=== PATIENT | female | born 1985 | race Caucasian/White ===

== ENCOUNTER 2018-06-14 17:06 | Inpatient (IN) | payer MEDICAID, OTHER ==
[~2018-06-14] VITALS: Ht 162.6 cm; Wt 66.2 kg
[~2018-06-14 17:06] MED LIST: HYDR-3498 PO; ZOFRAN
[2018-06-14] MEDS ORDERED: ACETAMINOPHEN 500 MG TAB PO STA (20:26)
[2018-06-14] MEDS ORDERED: SOD CHLORIDE 0.9% 1,000 ML IV ONE (20:30)
--- NOTE | 2018-06-14 20:35 | ERD ---
ER Documentation Chief Complaint Chief Complaint PELVIC PAIN 8 WEEKS PREG DENIES BLEEDING ROS All systems reviewed and are negative except as per history of present illness. Medications Home Meds Reported Medications [zofran PO] No Conflict Check 12/14/12 Hydrocodone Bit-Acetaminophen* ([place]*) 1 Tab Tab, 2 TAB PO QID 12/14/12 Allergies Allergies: Coded Allergies: No Known Allergy (Unverified , 12/15/12) PMhx/Soc Medical and Surgical Hx: pt denies Medical Hx History of Surgery: Yes (LAP BEBETO) Anesthesia Reaction: No Hx Neurological Disorder: No Hx Respiratory Disorders: No Hx Cardiac Disorders: No Hx Psychiatric Problems: No Hx Miscellaneous Medical Probl: No Hx Alcohol Use: No Hx Substance Use: Yes (MARIJUANA) Hx Tobacco Use: Yes (3 cigarretes sometimes) Smoking Status: Current every day smoker Physical Exam Vitals Vital Signs Date Temp Pulse Resp B/P (MAP) Pulse Ox O2 O2 Flow FiO2 Time Delivery Rate 06/14/18 97.7 98 18 90/51 (64) 100 Room Air 22:39 06/14/18 100.1 131 18 122/72 99 17:10 (89) Physical Exam Const: No acute distress Head: Atraumatic Eyes: Normal Conjunctiva ENT: Normal External Ears, Nose and Mouth. Neck: Full range of motion. No meningismus. Resp: Clear to auscultation bilaterally Cardio: Regular rate and rhythm, no murmurs Abd: Soft, non tender, non distended. Normal bowel sounds. . Skin: No petechiae or rashes Back: No midline or flank tenderness. Ext: No cyanosis, or edema Neur: Awake and alert. Romberg test negative. No neurological deficits. Psych: Normal Mood and Affect Result Diagram: 06/14/18211406/14/182114 Results 24 hrs Laboratory Tests Test 06/14/18 21:15 06/14/18 23:18 White Blood Count 13.9 10^3/ul Red Blood Count 4.24 10^6/ul Hemoglobin 11.8 g/dl Hematocrit 35.5 % Mean Corpuscular Volume 83.7 fl Mean Corpuscular Hemoglobin 27.8 pg Mean Corpuscular Hemoglobin Concent 33.2 g/dl Red Cell Distribution Width 13.1 % Platelet Count 323 10^3/UL Mean Platelet Volume 9.2 fl Immature Granulocytes % 0.700 % Neutrophils % 78.8 % Lymphocytes % 12.0 % Monocytes % 8.3 % Eosinophils % 0.0 % Basophils % 0.2 % Nucleated Red Blood Cells % 0.0 /100WBC Immature Granulocytes # 0.100 10^3/ul Neutrophils # 10.9 10^3/ul Lymphocytes # 1.7 10^3/ul Monocytes # 1.2 10^3/ul Eosinophils # 0.0 10^3/ul Basophils # 0.0 10^3/ul Nucleated Red Blood Cells # 0.0 10^3/ul Urine Color YELLOW Urine Clarity CLEAR Urine pH 6.0 Urine Specific [place] 1.003 Urine Ketones NEGATIVE mg/dL Urine Nitrite NEGATIVE mg/dL Urine Bilirubin NEGATIVE mg/dL Urine Urobilinogen NEGATIVE mg/dL Urine Leukocyte Esterase 2+ [place]/ul Urine Microscopic RBC 1 /HPF Urine Microscopic WBC 83 /HPF Urine Squamous Epithelial Cells FEW /HPF Urine Bacteria FEW /HPF Urine Hemoglobin 1+ mg/dL Urine Glucose NEGATIVE mg/dL Urine Total Protein NEGATIVE mg/dl Sodium Level 136 mmol/L Potassium Level 3.3 mmol/L Chloride Level 100 mmol/L Carbon Dioxide Level 25 mmol/L Anion Gap 11 Blood Urea Nitrogen 6 mg/dl Creatinine 0.52 mg/dl Est Glomerular Filtrat Rate mL/min > 60 mL/min Glucose Level 110 mg/dl Calcium Level 9.1 mg/dl Total Bilirubin 0.5 mg/dl Direct Bilirubin 0.00 mg/dl Indirect Bilirubin 0.5 mg/dl Aspartate Amino Transf (AST/SGOT) 27 IU/L Alanine Aminotransferase (ALT/SGPT) 6 IU/L Alkaline Phosphatase 72 IU/L Total Protein 7.5 g/dl Albumin 3.9 g/dl Globulin 3.60 g/dl Albumin/Globulin Ratio 1.08 Amylase Level 47 U/L Lipase 22 U/L Beta HCG, Quantitative 24846.0 mIU/ml POC Venous Lactate 1.5 mmol/L Current Medications Medications Dose Sig/Kristie Start Time Status Last (Trade) Ordered Route PRN Stop Time Admin Dose Reason Admin 500 mg ONCE STAT 06/14/18 DC 06/14/18 Acetaminophen PO 20:26 06/14/18 21:05 (Tylenol 20:31 Tab) Sodium 1,000 ml @ Q1H ONCE 06/14/18 DC 06/14/18 Chloride 1,000 mls/hr IV 20:30 06/14/18 21:14 21:29 Ceftriaxone 50 ml @ ONCE ONCE 06/15/18 DC 06/14/18 Sodium 100 mls/hr IVPB 00:00 06/15/18 23:55 00:29 Sodium 1,000 ml @ [id number] IV 06/15/18 Chloride 80 mls/hr 00:31 06/15/18 13:00 IV Flush 3 ml PER 06/15/18 (NS 3 ml) PROTOCOL IV 01:00 Ondansetron 4 mg Q6H PRN 06/15/18 HCl (Zofran IV 01:00 Inj) NAUSEA/VOMITI NG 650 mg Q6H PRN 06/15/18 Acetaminophen PO .PAIN 1-3 01:00 (Tylenol OR TEMP Tab) Docusate 100 mg Q12H PRN 06/15/18 Sodium PO 01:00 (Colace) .CONSTIPATION Bisacodyl 5 mg DAILY PRN 06/15/18 (Dulcolax) PO 01:00 .CONSTIPATION Ceftriaxone 50 ml @ Q24H IVPB 06/16/18 Sodium 100 mls/hr 00:00 Sodium 1,000 ml @ Q1H ONCE 06/15/18 Chloride 1,000 mls/hr IV 01:00 06/15/18 01:59 ANOOP AVELAR Jun 14, 2018 20:35
[2018-06-15] VITALS (9 sets, daily range): BP systolic 96–114; BP diastolic 52–65; PULSE 70–104; RESP 18–20; Ht 162.6 cm; Wt 66.2 kg
[2018-06-15] MEDS ORDERED: CEFTRIAXONE 1 GM/50 ML (PMX) 50 ML IVPB ONE
[2018-06-15] MEDS ORDERED: SOD CHLORIDE 0.9% 1,000 ML IV SCH (00:31)
[2018-06-15] MEDS ORDERED: DOCUSATE SODIUM 100 MG CAP PO PRN (01:00)
[2018-06-15] MEDS ORDERED: ONDANSETRON 4 MG INJ IV PRN (01:00)
[2018-06-15] MEDS ORDERED: BISACODYL (EC) 5 MG TAB PO PRN (01:00)
[2018-06-15] MEDS ORDERED: NACL 0.9% 3 ML SYG IV SCH (01:00)
[2018-06-15] MEDS ORDERED: SOD CHLORIDE 0.9% 1,000 ML IV ONE (01:00)
--- NOTE | 2018-06-15 01:14 | ERD ---
ER Documentation Chief Complaint Chief Complaint PELVIC PAIN 8 WEEKS PREG DENIES BLEEDING HPI The patient is a 32-year-old female, presenting abdominal pain intermittently for the last couple days, denies fever, chills, neck pain, chest pain dyspnea, denies vomiting, dysuria, diarrhea. ROS All systems reviewed and are negative except as per history of present illness. Medications Home Meds Reported Medications [zofran PO] No Conflict Check 12/14/12 Hydrocodone Bit-Acetaminophen* ([place]*) 1 Tab Tab, 2 TAB PO QID 12/14/12 Allergies Allergies: Coded Allergies: No Known Allergy (Unverified , 12/15/12) PMhx/Soc Medical and Surgical Hx: pt denies Medical Hx History of Surgery: Yes (LAP BEBETO) Anesthesia Reaction: No Hx Neurological Disorder: No Hx Respiratory Disorders: No Hx Cardiac Disorders: No Hx Psychiatric Problems: No Hx Miscellaneous Medical Probl: No Hx Alcohol Use: No Hx Substance Use: Yes (MARIJUANA) Hx Tobacco Use: Yes (3 cigarretes sometimes) Smoking Status: Current every day smoker Physical Exam Vitals Vital Signs Date Temp Pulse Resp B/P (MAP) Pulse Ox O2 O2 Flow FiO2 Time Delivery Rate 06/14/18 97.7 98 18 90/51 (64) 100 Room Air 22:39 06/14/18 100.1 131 18 122/72 99 17:10 (89) Physical Exam Const: No acute distress. Head: Atraumatic. Eyes: Normal Conjunctiva. ENT: Normal External Ears, Nose and Mouth. Neck: Full range of motion. No meningismus. Resp: Clear to auscultation bilaterally. Cardio: Regular tachycardic Abd: Soft, non distended, normal bowel sounds, non tender. Mild bilateral CVA tenderness Skin: No petechiae or rashes. Back: No midline or flank tenderness. Ext: No cyanosis, or edema. Neur: Awake and alert. No focal deficit Psych: Normal Mood and Affect. Result Diagram: 06/14/18211406/14/182114 Results 24 hrs Laboratory Tests Test 06/14/18 21:15 06/14/18 23:18 White Blood Count 13.9 10^3/ul Red Blood Count 4.24 10^6/ul Hemoglobin 11.8 g/dl Hematocrit 35.5 % Mean Corpuscular Volume 83.7 fl Mean Corpuscular Hemoglobin 27.8 pg Mean Corpuscular Hemoglobin Concent 33.2 g/dl Red Cell Distribution Width 13.1 % Platelet Count 323 10^3/UL Mean Platelet Volume 9.2 fl Immature Granulocytes % 0.700 % Neutrophils % 78.8 % Lymphocytes % 12.0 % Monocytes % 8.3 % Eosinophils % 0.0 % Basophils % 0.2 % Nucleated Red Blood Cells % 0.0 /100WBC Immature Granulocytes # 0.100 10^3/ul Neutrophils # 10.9 10^3/ul Lymphocytes # 1.7 10^3/ul Monocytes # 1.2 10^3/ul Eosinophils # 0.0 10^3/ul Basophils # 0.0 10^3/ul Nucleated Red Blood Cells # 0.0 10^3/ul Urine Color YELLOW Urine Clarity CLEAR Urine pH 6.0 Urine Specific [place] 1.003 Urine Ketones NEGATIVE mg/dL Urine Nitrite NEGATIVE mg/dL Urine Bilirubin NEGATIVE mg/dL Urine Urobilinogen NEGATIVE mg/dL Urine Leukocyte Esterase 2+ [place]/ul Urine Microscopic RBC 1 /HPF Urine Microscopic WBC 83 /HPF Urine Squamous Epithelial Cells FEW /HPF Urine Bacteria FEW /HPF Urine Hemoglobin 1+ mg/dL Urine Glucose NEGATIVE mg/dL Urine Total Protein NEGATIVE mg/dl Sodium Level 136 mmol/L Potassium Level 3.3 mmol/L Chloride Level 100 mmol/L Carbon Dioxide Level 25 mmol/L Anion Gap 11 Blood Urea Nitrogen 6 mg/dl Creatinine 0.52 mg/dl Est Glomerular Filtrat Rate mL/min > 60 mL/min Glucose Level 110 mg/dl Calcium Level 9.1 mg/dl Total Bilirubin 0.5 mg/dl Direct Bilirubin 0.00 mg/dl Indirect Bilirubin 0.5 mg/dl Aspartate Amino Transf (AST/SGOT) 27 IU/L Alanine Aminotransferase (ALT/SGPT) 6 IU/L Alkaline Phosphatase 72 IU/L Total Protein 7.5 g/dl Albumin 3.9 g/dl Globulin 3.60 g/dl Albumin/Globulin Ratio 1.08 Amylase Level 47 U/L Lipase 22 U/L Beta HCG, Quantitative 04019.0 mIU/ml POC Venous Lactate 1.5 mmol/L Current Medications Medications Dose Sig/Kristie Start Time Status Last (Trade) Ordered Route PRN Stop Time Admin Dose Reason Admin 500 mg ONCE STAT 06/14/18 DC 06/14/18 Acetaminophen PO 20:26 06/14/18 21:05 (Tylenol 20:31 Tab) Sodium 1,000 ml @ Q1H ONCE 06/14/18 DC 06/14/18 Chloride 1,000 mls/hr IV 20:30 06/14/18 21:14 21:29 Ceftriaxone 50 ml @ ONCE ONCE 06/15/18 DC 06/14/18 Sodium 100 mls/hr IVPB 00:00 06/15/18 23:55 00:29 Sodium 1,000 ml @ [id number] IV 06/15/18 Chloride 80 mls/hr 00:31 06/15/18 13:00 IV Flush 3 ml PER 06/15/18 (NS 3 ml) PROTOCOL IV 01:00 Ondansetron 4 mg Q6H PRN 06/15/18 HCl (Zofran IV 01:00 Inj) NAUSEA/VOMITI NG 650 mg Q6H PRN 06/15/18 Acetaminophen PO .PAIN 1-3 01:00 (Tylenol OR TEMP Tab) Docusate 100 mg Q12H PRN 06/15/18 Sodium PO 01:00 (Colace) .CONSTIPATION Bisacodyl 5 mg DAILY PRN 06/15/18 (Dulcolax) PO 01:00 .CONSTIPATION Ceftriaxone 50 ml @ Q24H IVPB 06/16/18 Sodium 100 mls/hr 00:00 Sodium 1,000 ml @ Q1H ONCE 06/15/18 Chloride 1,000 mls/hr IV 01:00 06/15/18 01:59 Procedures/MDM MEDICAL MAKING DECISION: The patient is a 32-year-old female, presenting with acute dehydration, acute pyelonephritis. She was treated with 1 L normal saline x2 for acute dehydration, Rocephin 1 g IV for acute pyelonephritis, Tylenol p.o. for fever, potassium chloride 40 mg p.o. for acute hyperkalemia with good response. The differential diagnoses considered include but are not limited to threatened , cholelithiasis, cholecystitis, choledocholithiasis, cholangitis, pancreatitis, hepatitis, gastritis, peptic ulcer disease, gastric ulcer, appendicitis, cystitis, diverticulitis, partial small bowel obstruction. Consultation: We discussed the patient with the on-call web applications architect Dr. Oates, was made aware of the lab, the patient condition and she accepted the consult Departure Diagnosis: Primary Impression: Pyelonephritis Additional Impressions: Hypokalemia Anemia Condition: Stable Comments I discussed the findings with the patient. I discussed the patient with the hospitalist Dr aPlmer at 12:30 am . who was made aware of the lab, the treatment, the patient condition. The patient is admitted to [facility] Disclaimer: Inadvertent spelling and grammatical errors are likely due to EHR/dictation software use and do not reflect on the overall quality of patient care. Also, please note that the electronic time recorded on this note does not necessarily reflect the actual time of the patient encounter. REBECCA SOLER MD Jun 15, 2018 01:14
[2018-06-15] MEDS ORDERED: POTASSIUM CHLORIDE (SR) 20 MEQ TAB PO ONE (01:16)
--- NOTE | 2018-06-15 06:34 | HP ---
Date/Time of Note Date/Time of Note DATE: 06/15/18 TIME: 06:34 Assessment/Plan VTE Prophylaxis SCD applied (from Nsg): Yes Pharmacological prophylaxis: NA/contraindicated Pharm contraindication: low risk/ambulating Lines/Catheters IV Catheter Type (from Nrsg): Peripheral IV Urinary Cath still in place: No Assessment/Plan Hospital Course This is a 32-year-old female was admitted to the telemetry floor for: #1 sepsis: Secondary to urinary tract infection/pyelonephritis. Ceftriaxone 1 g IV every 24 hours. Await culture results. #2 pyelonephritis/urinary tract infection: Ceftriaxone 1 g every 24 hours IV, await culture results #3 intrauterine : Septic ultrasound shows at approximately 8 weeks. Focal areas of subchorionic hemorrhage.also noted, OB has been consulted by the ED, await further recommendations. #4 illicit drugs: reports meth and MJ use. Check ethanol and urine drug screen. encourage cessation. monitor for signs of withdrawal. on site services specialist consult #5 dvt and gi proph: scds, no gi prophy indicated further treatment strategy will be implemented as per the clinical course. Result Diagram: 06/14/18211406/14/182114 Results 24hrs Laboratory Tests Test 06/14/18 21:15 06/14/18 23:18 White Blood Count 13.9 H Red Blood Count 4.24 Hemoglobin 11.8 L Hematocrit 35.5 L Mean Corpuscular Volume 83.7 Mean Corpuscular Hemoglobin 27.8 L Mean Corpuscular Hemoglobin Concent 33.2 Red Cell Distribution Width 13.1 Platelet Count 323 Mean Platelet Volume 9.2 Immature Granulocytes % 0.700 H Neutrophils % 78.8 H Lymphocytes % 12.0 L Monocytes % 8.3 Eosinophils % 0.0 Basophils % 0.2 Nucleated Red Blood Cells % 0.0 Immature Granulocytes # 0.100 H Neutrophils # 10.9 H Lymphocytes # 1.7 Monocytes # 1.2 H Eosinophils # 0.0 Basophils # 0.0 Nucleated Red Blood Cells # 0.0 Urine Color YELLOW Urine Clarity CLEAR Urine pH 6.0 Urine Specific [place] 1.003 Urine Ketones NEGATIVE Urine Nitrite NEGATIVE Urine Bilirubin NEGATIVE Urine Urobilinogen NEGATIVE Urine Leukocyte Esterase 2+ H Urine Microscopic RBC 1 Urine Microscopic WBC 83 H Urine Squamous Epithelial Cells FEW Urine Bacteria FEW A Urine Hemoglobin 1+ H Urine Glucose NEGATIVE Urine Total Protein NEGATIVE Sodium Level 136 Potassium Level 3.3 L Chloride Level 100 Carbon Dioxide Level 25 Anion Gap 11 Blood Urea Nitrogen 6 L Creatinine 0.52 Est Glomerular Filtrat Rate mL/min > 60 Glucose Level 110 Calcium Level 9.1 Total Bilirubin 0.5 Direct Bilirubin 0.00 Indirect Bilirubin 0.5 Aspartate Amino Transf (AST/SGOT) 27 Alanine Aminotransferase (ALT/SGPT) 6 L Alkaline Phosphatase 72 Total Protein 7.5 Albumin 3.9 Globulin 3.60 H Albumin/Globulin Ratio 1.08 Amylase Level 47 Lipase 22 L Beta HCG, Quantitative 73729.0 POC Venous Lactate 1.5 HPI/ROS Admit Date/Time Admit Date/Time Jun 15, 2018 at 00:34 Hx of Present Illness Chief complaint: Chills, left-sided flank pain times 1 day this is a 32-year-old female with a history of IV drug use in 8 weeks who presents today with chills and left-sided flank pain. Patient reports that yesterday she started experiencing chills as well as left-sided flank pain. She also reported nausea. Patient denies any cough or chest pain or shortness of breath. She knows that she is . And she does currently use marijuana and IV meth. She reports that she is hoping to quit. Allergies: NKDA medications: See Jun Const: As per HPI sis Eyes : No pain discharge or redness or change in visual acuity ENT: No pain, sore throat, congestion, congestion, dysphagia or discharge Respiratory: No shortness of breath, cough, sputum, wheezing, or pleuritic pain Cardiovascular: No chest pain, palpitation, PND, or edema GI : no change in appetite, abdominal pain, nausea, vomiting, diarrhea, constipation, or change in the color his stool Genitourinary: As per HPI Musculoskeletal: No joint pain, back pain, neck pain, restricted range of motion in neck or joints Skin: No rash, bruising or hives Neuro: No headache, dizziness, syncope, seizure, focal weakness Endocrine: No polyuria, polydipsia, temperature intolerance Psych: No hallucination, depression, anxiety or suicidal ideation PMH/Family/Social Past Medical History Hepatitis C Medications Current Medications Sodium Chloride 1,000 ml @ 80 mls/hr [id number] IV Last administered on 06/15/18at 02:24; Admin Dose 80 MLS/HR; Start 06/15/18 at 00:31; Stop 06/15/18 at 13:00 IV Flush (NS 3 ml) 3 ml PER PROTOCOL IV ; Start 06/15/18 at 01:00 Ondansetron HCl (Zofran Inj) 4 mg Q6H PRN IV NAUSEA/VOMITING; Start 06/15/18 at 01:00 Acetaminophen (Tylenol Tab) 650 mg Q6H PRN PO .PAIN 1-3 OR TEMP; Start 06/15/18 at 01:00 Docusate Sodium (Colace) 100 mg Q12H PRN PO .CONSTIPATION; Start 06/15/18 at 01:00 Bisacodyl (Dulcolax) 5 mg DAILY PRN PO .CONSTIPATION; Start 06/15/18 at 01:00 Ceftriaxone Sodium 50 ml @ 100 mls/hr Q24H IVPB ; Start 06/16/18 at 00:00 Influenza Virus Vaccine Quadrival (Fluzone) 0.5 ml ONCE ONCE IM* ; Start 06/16/18 at 10:00; Stop 06/16/18 at 10:01 Coded Allergies: No Known Allergy (Unverified , 12/15/12) Past Surgical History Past Surgical Hx: cholecystectomy Family History Significant Family History: no pertinent family hx Social History Alcohol Use: none Smoking Status: Never smoker Drug Use: marijuana, other (IV meth use) Exam/Review of Systems Vital Signs Vitals Vital Signs Date Temp Pulse Resp B/P (MAP) Pulse Ox O2 O2 Flow FiO2 Time Delivery Rate 06/15/18 99 04:00 06/15/18 98.3 20 106/56 98 02:33 (73) 06/15/18 Room Air 01:38 Intake and Output 06/14/18 06/14/18 06/15/18 1515:00 23:00 07:00 IntakeIntake Total 700 ml BalanceBalance 700 ml Exam Exam General: Patient is currently lying in bed in no acute distress, HEENT: Atraumatic, normocephalic. The pupils are equal, round and reactive. Extraocular motor are intact Neck: Supple with full range of motion. No rigidity or meningismus Chest: Nontender Lungs: Clear to auscultation bilaterally no crackles rales or wheezing Heart: Normal S1-S2, Regular rhythm and rate.\ Abdomen: Soft , nontender, nondistended , bowel sounds are present. No guarding no rebound tenderness , No masses or organomegaly. Extremities: Normal to inspection, no edema no cyanosis Genitourinary: Left CVA tenderness palpation Neurologic: Normal mental status, speech normal, cranial nerves II through XII are intact, motor and sensory are intact, no focal weakness Psych: Currently not agitated, non-tremulous, she appears pleasant Additional Comments PROCEDURE: US OB. CLINICAL INDICATION: Pelvic pain TECHNIQUE: Transabdominal views of the pelvis were obtained. COMPARISON: No prior studies are available for comparison. FINDINGS: There is a single intrauterine gestation with a CRL measuring 2.4 cm and the gestational sac measures 3.2 cm, corresponding to a gestational age of 8 weeks and 5 days. The heart rate is noted at 173 bpm. There are small hypoechoic fluid collections adjacent to the gestational sac, measuring 1.5 x 0.7 and 0.9 x 0.5 cm, consistent with subchorionic hemorrhage. The right ovary measures 3.0 x 1.1 x 1.8 cm. The left ovary measures 2.6 x 1.10 x 2.5 cm. No ovarian or adnexal mass lesion is seen. There is no free fluid. RPTAT: AA IMPRESSION: Single live intrauterine with an estimated gestational age of 8 weeks and 5 days, based on ultrasound measurements. Focal areas of subchorionic hemorrhage. Close follow-up is recommended. .Sloan Freitas MD, MD Date Time Electronically viewed and signed by .Sloan Freitas MD, MD on 06/14/2018 21:09 .S/ CC: ANOOP AVELAR [id number] PROCEDURE: Retroperitoneal US. CLINICAL INDICATION: Flank pain TECHNIQUE: Multiple sonographic images of the kidneys and retroperitoneum were obtained. The images were reviewed on a PACS workstation. COMPARISON: No prior studies are available for comparison. FINDINGS: The kidneys are normal in size, contour, cortical thickness and cortical echoge nicity. The right kidney measures 10.7 cm. The left kidney measures 12.2 cm. No kidney stones are visualized. There is no evidence for hydronephrosis. The urinary bladder is not visualized. RPTAT: AA IMPRESSION: Unremarkable retroperitoneal ultrasound. .Sloan Freitas MD, MD Date Time Electronically viewed and signed by .Slona Freitas MD, on 06/14/2018 21:08 .S/ CC: ANOOP AVELAR [id number] MARCELO ARENAS Jun 15, 2018 06:34
[2018-06-15] MEDS: ACETAMINOPHEN 325 MG TAB PO PRN (12:08)
--- NOTE | 2018-06-15 15:20 | PN ---
Date/Time of Note Date/Time of Note DATE: 06/15/18 TIME: 15:14 Assessment/Plan VTE Prophylaxis Risk score (from Nsg)>0 risk: 2 SCD applied (from Nsg): Yes Pharmacological prophylaxis: NA/contraindicated Pharm contraindication: low risk/ambulating Lines/Catheters IV Catheter Type (from Nrsg): Peripheral IV Urinary Cath still in place: No Assessment/Plan Assessment/Plan 32 yo woman presents with pyelonephritis. #1 sepsis: Secondary to urinary tract infection/pyelonephritis. Ceftriaxone 1 g IV every 24 hours. Await culture results. #2 pyelonephritis/urinary tract infection: Ceftriaxone 1 g every 24 hours IV, await culture results #3 intrauterine : Septic ultrasound shows at approximately 8 weeks. Focal areas of subchorionic hemorrhage.also noted, OB has been consulted by the ED, await further recommendations. #4 illicit drugs: reports meth and MJ use. Check ethanol and urine drug screen. encourage cessation. monitor for signs of withdrawal. software engineer web services consult #5 dvt and gi proph: scds, no gi prophy indicated Result Diagram: 06/15/18 0606/15/18 0622 Subjective 24 Hr Interval Summary Free Text/Dictation No acute overnight events. She continues to have moderate L flank pain. Adequately controlled with ibuprofen and acetaminophen. Exam/Review of Systems Exam Vitals Vital Signs Date Temp Pulse Resp B/P (MAP) Pulse Ox O2 O2 Flow FiO2 Time Delivery Rate 06/15/18 98.5 71 18 108/56 98 12:00 (73) 06/15/18 Room Air 01:38 Intake and Output 06/14/18 06/14/18 06/15/18 1515:00 23:00 07:00 IntakeIntake Total 700 ml BalanceBalance 700 ml Exam General: Patient is currently lying in bed in no acute distress, HEENT: Atraumatic, normocephalic. The pupils are equal, round and reactive. Extraocular motor are intact Neck: Supple with full range of motion. No rigidity or meningismus Chest: Nontender Lungs: Clear to auscultation bilaterally no crackles rales or wheezing Heart: Normal S1-S2, Regular rhythm and rate. Abdomen: Soft , nontender, nondistended , bowel sounds are present. Mild L flank tenderness. Extremities: Normal to inspection, no edema no cyanosis Genitourinary: Mild Left CVA tenderness to palpation Results Results 24hrs Laboratory Tests Test 06/14/18 21:15 06/14/18 23:18 06/15/18 06:22 White Blood Count 13.9 H 10.4 # Red Blood Count 4.24 3.48 L Hemoglobin 11.8 L 9.8 L Hematocrit 35.5 L 29.7 L Mean Corpuscular Volume 83.7 85.3 Mean Corpuscular Hemoglobin 27.8 L 28.2 L Mean Corpuscular Hemoglobin Concent 33.2 33.0 Red Cell Distribution Width 13.1 13.3 Platelet Count 323 252 # Mean Platelet Volume 9.2 9.5 Immature Granulocytes % 0.700 H 0.500 H Neutrophils % 78.8 H 78.9 H Lymphocytes % 12.0 L 10.4 L Monocytes % 8.3 9.9 Eosinophils % 0.0 0.1 Basophils % 0.2 0.2 Nucleated Red Blood Cells % 0.0 0.0 Immature Granulocytes # 0.100 H 0.050 H Neutrophils # 10.9 H 8.2 H Lymphocytes # 1.7 1.1 Monocytes # 1.2 H 1.0 H Eosinophils # 0.0 0.0 Basophils # 0.0 0.0 Nucleated Red Blood Cells # 0.0 0.0 Urine Color YELLOW Urine Clarity CLEAR Urine pH 6.0 Urine Specific [place] 1.003 Urine Ketones NEGATIVE Urine Nitrite NEGATIVE Urine Bilirubin NEGATIVE Urine Urobilinogen NEGATIVE Urine Leukocyte Esterase 2+ H Urine Microscopic RBC 1 Urine Microscopic WBC 83 H Urine Squamous Epithelial Cells FEW Urine Bacteria FEW A Urine Hemoglobin 1+ H Urine Glucose NEGATIVE Urine Total Protein NEGATIVE Sodium Level 136 139 Potassium Level 3.3 L 3.6 Chloride Level 100 105 Carbon Dioxide Level 25 26 Anion Gap 11 8 Blood Urea Nitrogen 6 L 8 Creatinine 0.52 0.59 Est Glomerular Filtrat Rate mL/min > 60 > 60 Glucose Level 110 110 Calcium Level 9.1 8.2 L Total Bilirubin 0.5 0.3 Direct Bilirubin 0.00 0.00 Indirect Bilirubin 0.5 0.3 Aspartate Amino Transf (AST/SGOT) 27 39 Alanine Aminotransferase (ALT/SGPT) 6 L 22 Alkaline Phosphatase 72 70 Total Protein 7.5 6.1 # Albumin 3.9 3.0 L Globulin 3.60 H 3.10 Albumin/Globulin Ratio 1.08 0.96 Amylase Level 47 Lipase 22 L Beta HCG, Quantitative 78238.0 POC Venous Lactate 1.5 Hemoglobin A1c 5.2 Magnesium Level 1.8 Thyroid Stimulating Hormone (TSH) 2.040 Ethyl Alcohol Level < 10.0 H Medications Medication Current Medications IV Flush (NS 3 ml) 3 ml PER PROTOCOL IV ; Start 06/15/18 at 01:00 Ondansetron HCl (Zofran Inj) 4 mg Q6H PRN IV NAUSEA/VOMITING; Start 06/15/18 at 01:00 Acetaminophen (Tylenol Tab) 650 mg Q6H PRN PO .PAIN 1-3 OR TEMP Last administered on 06/15/18at 12:08; Admin Dose 650 MG; Start 06/15/18 at 01:00 Docusate Sodium (Colace) 100 mg Q12H PRN PO .CONSTIPATION; Start 06/15/18 at 01:00 Bisacodyl (Dulcolax) 5 mg DAILY PRN PO .CONSTIPATION; Start 06/15/18 at 01:00 Ceftriaxone Sodium 50 ml @ 100 mls/hr Q24H IVPB ; Start 06/16/18 at 00:00 Influenza Virus Vaccine Quadrival (Fluzone) 0.5 ml ONCE ONCE IM* ; Start 06/16/18 at 10:00; Stop 06/16/18 at 10:01 ERIC MAYO MD Jun 15, 2018 15:20
[2018-06-15] MEDS: CEFTRIAXONE 1 GM/50 ML (PMX) 50 ML IVPB SCH (23:55)
[2018-06-16] VITALS (11 sets, daily range): BP systolic 85–112; BP diastolic 53–60; PULSE 74–104; RESP 16–20
[2018-06-16] MEDS ORDERED: SOD CHLORIDE 0.9% 1,000 ML IV ONE
[2018-06-16] MEDS: ACETAMINOPHEN 325 MG TAB PO PRN ×2 (00:02→18:52)
--- NOTE | 2018-06-16 17:17 | PN ---
Date/Time of Note Date/Time of Note DATE: 06/16/18 TIME: 17:16 Assessment/Plan VTE Prophylaxis Risk score (from Nsg)>0 risk: 0 SCD applied (from Ns): No SCD contraindicated: low risk/ambulating Pharmacological prophylaxis: NA/contraindicated Pharm contraindication: low risk/ambulating Lines/Catheters IV Catheter Type (from Nrsg): Peripheral IV Urinary Cath still in place: No Assessment/Plan Assessment/Plan 32 yo woman, drug user presents with pyelonephritis. #1 sepsis: Secondary to urinary tract infection/pyelonephritis. Ceftriaxone 1 g IV every 24 hours. Await culture results. #2 pyelonephritis/urinary tract infection: Ceftriaxone 1 g every 24 hours IV, await culture results #3 intrauterine : Septic ultrasound shows at approximately 8 weeks. Focal areas of subchorionic hemorrhage.also noted, OB has been consulted by the ED, await further recommendations. #4 illicit drugs: reports meth and MJ use. administrative services officer consult. #5 dvt and gi proph: scds, no gi prophy indicated Result Diagram: 06/16/18 0631 06/16/18 0631 Subjective 24 Hr Interval Summary Free Text/Dictation No acute overnight events. Patient continues to have mild L flank pain. Exam/Review of Systems Exam Vitals Vital Signs Date Temp Pulse Resp B/P (MAP) Pulse Ox O2 O2 Flow FiO2 Time Delivery Rate 06/16/18 90 16:45 06/16/18 98.0 16 95/54 (68) 100 15:39 06/15/18 Room Air 01:38 Intake and Output 06/15/18 06/15/18 06/16/18 1515:00 23:00 07:00 IntakeIntake Total 1650 ml 500 ml BalanceBalance 1650 ml 500 ml Exam General: Patient is currently lying in bed in no acute distress, HEENT: Atraumatic, normocephalic. The pupils are equal, round and reactive. Extraocular motor are intact Neck: Supple with full range of motion. No rigidity or meningismus Chest: Nontender Lungs: Clear to auscultation bilaterally no crackles rales or wheezing Heart: Normal S1-S2, Regular rhythm and rate. Abdomen: Soft , nontender, nondistended , bowel sounds are present. Mild L flank tenderness. Extremities: Normal to inspection, no edema no cyanosis Genitourinary: Mild Left CVA tenderness to palpation Results Results 24hrs Laboratory Tests Test 06/16/18 00:10 06/16/18 06:31 Urine Opiates Screen Negative Urine Barbiturates Negative Urine Amphetamines Screen Positive Urine Benzodiazepines Screen Negative Urine Cocaine Screen Negative Urine Cannabinoids Positive White Blood Count 6.1 # Red Blood Count 3.37 L Hemoglobin 9.3 L Hematocrit 29.0 L Mean Corpuscular Volume 86.1 Mean Corpuscular Hemoglobin 27.6 L Mean Corpuscular Hemoglobin Concent 32.1 Red Cell Distribution Width 13.6 Platelet Count 224 Mean Platelet Volume 9.3 Immature Granulocytes % 0.300 Neutrophils % 64.5 Lymphocytes % 23.1 Monocytes % 10.9 Eosinophils % 1.0 Basophils % 0.2 Nucleated Red Blood Cells % 0.0 Immature Granulocytes # 0.020 Neutrophils # 4.0 Lymphocytes # 1.4 Monocytes # 0.7 Eosinophils # 0.1 Basophils # 0.0 Nucleated Red Blood Cells # 0.0 Sodium Level 140 Potassium Level 4.0 Chloride Level 109 Carbon Dioxide Level 23 Anion Gap 8 Blood Urea Nitrogen 6 L Creatinine 0.56 Est Glomerular Filtrat Rate mL/min > 60 Glucose Level 110 Calcium Level 8.5 Total Bilirubin 0.0 L Direct Bilirubin 0.00 Indirect Bilirubin 0.0 Aspartate Amino Transf (AST/SGOT) 50 H Alanine Aminotransferase (ALT/SGPT) 36 Alkaline Phosphatase 80 Total Protein 6.0 L Albumin 2.8 L Globulin 3.20 Albumin/Globulin Ratio 0.87 Triglycerides Level 90 Cholesterol Level 71 L LDL Cholesterol, Calculated 35 HDL Cholesterol 18 L Cholesterol/HDL Ratio 3.9 Medications Medication Current Medications IV Flush (NS 3 ml) 3 ml PER PROTOCOL IV ; Start 06/15/18 at 01:00 Ondansetron HCl (Zofran Inj) 4 mg Q6H PRN IV NAUSEA/VOMITING; Start 06/15/18 at 01:00 Acetaminophen (Tylenol Tab) 650 mg Q6H PRN PO .PAIN 1-3 OR TEMP Last administered on 06/16/18at 00:02; Admin Dose 650 MG; Start 06/15/18 at 01:00 Docusate Sodium (Colace) 100 mg Q12H PRN PO .CONSTIPATION; Start 06/15/18 at 01:00 Bisacodyl (Dulcolax) 5 mg DAILY PRN PO .CONSTIPATION; Start 06/15/18 at 01:00 Ceftriaxone Sodium 50 ml @ 100 mls/hr Q24H IVPB Last administered on 06/15/18at 23:55; Admin Dose 100 MLS/HR; Start 06/16/18 at 00:00 ERIC MAYO MD Jun 16, 2018 17:17
[2018-06-16] MEDS: CEFTRIAXONE 1 GM/50 ML (PMX) 50 ML IVPB SCH (23:45)
[2018-06-17] VITALS (11 sets, daily range): BP systolic 84–125; BP diastolic 50–71; PULSE 84–150; RESP 16–18
[2018-06-17] MEDS ORDERED: SOD CHLORIDE 0.9% 1,000 ML IV ONE
--- NOTE | 2018-06-17 12:02 | PN ---
Date/Time of Note Date/Time of Note DATE: 06/17/18 TIME: 11:53 Assessment/Plan VTE Prophylaxis Risk score (from Ns)>0 risk: 0 SCD applied (from Ns): Yes Pharmacological prophylaxis: other Lines/Catheters IV Catheter Type (from Nrsg): Saline Lock Urinary Cath still in place: No Assessment/Plan Hospital Course S: No acute events overnight. O: VS - see below PE: General: Patient is currently lying in bed in no acute distress, HEENT: Atraumatic, normocephalic. The pupils are equal, round and reactive. Extraocular motor are intact Neck: Supple with full range of motion. No rigidity or meningismus Chest: Nontender Lungs: Clear to auscultation bilaterally no crackles rales or wheezing Heart: Normal S1-S2, Regular rhythm and rate. Abdomen: Soft , nontender, nondistended , bowel sounds are present, mild L flank tenderness. Extremities: Normal to inspection, no edema no cyanosis Genitourinary: Mild Left CVA tenderness to palpation Assessment/Plan: 32 yo woman, drug user presents with pyelonephritis. #1 sepsis: Secondary to urinary tract infection/pyelonephritis-slowly improving -For now continue ceftriaxone 1 g IV every 24 hours. Await culture [id number] results of this # 2 intrauterine : Septic ultrasound shows at approximately 8 weeks. Focal areas of subchorionic hemorrhage.also noted -Monitor for now, on admission OB was consulted by the ED, still awaiting further recommendations. # 3 illicit drugs: reports meth and MJ use. -Monitor for withdrawal, follow-up recommendations from social and political studies professor consult. # 4 dvt and gi proph: scds, no gi prophy indicated Result Diagram: 06/17/1831 06/17/1831 Results 24hrs Laboratory Tests Test 06/17/18 00:25 06/17/18 05:31 Lactic Acid Level 1.5 White Blood Count 6.1 Red Blood Count 3.55 L Hemoglobin 10.0 L Hematocrit 30.7 L Mean Corpuscular Volume 86.5 Mean Corpuscular Hemoglobin 28.2 L Mean Corpuscular Hemoglobin Concent 32.6 Red Cell Distribution Width 13.2 Platelet Count 287 # Mean Platelet Volume 9.5 Immature Granulocytes % 0.300 Neutrophils % 67.3 Lymphocytes % 20.8 Monocytes % 10.1 Eosinophils % 1.2 Basophils % 0.3 Nucleated Red Blood Cells % 0.0 Immature Granulocytes # 0.020 Neutrophils # 4.1 Lymphocytes # 1.3 Monocytes # 0.6 Eosinophils # 0.1 Basophils # 0.0 Nucleated Red Blood Cells # 0.0 Sodium Level 141 Potassium Level 3.9 Chloride Level 108 Carbon Dioxide Level 22 Anion Gap 11 Blood Urea Nitrogen 6 L Creatinine 0.50 Est Glomerular Filtrat Rate mL/min > 60 Glucose Level 108 Calcium Level 8.8 Total Bilirubin 0.1 L Direct Bilirubin 0.00 Indirect Bilirubin 0.1 Aspartate Amino Transf (AST/SGOT) 21 Alanine Aminotransferase (ALT/SGPT) 27 Alkaline Phosphatase 73 Total Protein 6.1 Albumin 3.0 L Globulin 3.10 Albumin/Globulin Ratio 0.96 Exam/Review of Systems Exam Vitals Vital Signs Date Temp Pulse Resp B/P (MAP) Pulse Ox O2 O2 Flow FiO2 Time Delivery Rate 06/17/18 97.6 99 16 125/62 99 11:09 (83) 06/15/18 Room Air 01:38 Intake and Output 06/16/18 06/16/18 06/17/18 1515:00 23:00 07:00 IntakeIntake Total 800 ml 600 ml BalanceBalance 800 ml 600 ml Results Results 24hrs Laboratory Tests Test 06/17/18 00:25 06/17/18 05:31 Lactic Acid Level 1.5 White Blood Count 6.1 Red Blood Count 3.55 L Hemoglobin 10.0 L Hematocrit 30.7 L Mean Corpuscular Volume 86.5 Mean Corpuscular Hemoglobin 28.2 L Mean Corpuscular Hemoglobin Concent 32.6 Red Cell Distribution Width 13.2 Platelet Count 287 # Mean Platelet Volume 9.5 Immature Granulocytes % 0.300 Neutrophils % 67.3 Lymphocytes % 20.8 Monocytes % 10.1 Eosinophils % 1.2 Basophils % 0.3 Nucleated Red Blood Cells % 0.0 Immature Granulocytes # 0.020 Neutrophils # 4.1 Lymphocytes # 1.3 Monocytes # 0.6 Eosinophils # 0.1 Basophils # 0.0 Nucleated Red Blood Cells # 0.0 Sodium Level 141 Potassium Level 3.9 Chloride Level 108 Carbon Dioxide Level 22 Anion Gap 11 Blood Urea Nitrogen 6 L Creatinine 0.50 Est Glomerular Filtrat Rate mL/min > 60 Glucose Level 108 Calcium Level 8.8 Total Bilirubin 0.1 L Direct Bilirubin 0.00 Indirect Bilirubin 0.1 Aspartate Amino Transf (AST/SGOT) 21 Alanine Aminotransferase (ALT/SGPT) 27 Alkaline Phosphatase 73 Total Protein 6.1 Albumin 3.0 L Globulin 3.10 Albumin/Globulin Ratio 0.96 Medications Medication Current Medications IV Flush (NS 3 ml) 3 ml PER PROTOCOL IV ; Start 06/15/18 at 01:00 Ondansetron HCl (Zofran Inj) 4 mg Q6H PRN IV NAUSEA/VOMITING; Start 06/15/18 at 01:00 Acetaminophen (Tylenol Tab) 650 mg Q6H PRN PO .PAIN 1-3 OR TEMP Last administered on 06/16/18at 18:52; Admin Dose 650 MG; Start 06/15/18 at 01:00 Docusate Sodium (Colace) 100 mg Q12H PRN PO .CONSTIPATION; Start 06/15/18 at 01:00 Bisacodyl (Dulcolax) 5 mg DAILY PRN PO .CONSTIPATION; Start 06/15/18 at 01:00 Ceftriaxone Sodium 50 ml @ 100 mls/hr Q24H IVPB Last administered on 06/16/18at 23:45; Admin Dose 100 MLS/HR; Start 06/16/18 at 00:00 RUBY BURNETT Jun 17, 2018 12:02
[2018-06-18] VITALS (10 sets, daily range): BP systolic 97–109; BP diastolic 51–67; PULSE 72–104; RESP 16–18
[2018-06-18] MEDS: CEFTRIAXONE 1 GM/50 ML (PMX) 50 ML IVPB SCH ×2 (00:07→23:46)
--- NOTE | 2018-06-18 12:01 | PN ---
Date/Time of Note Date/Time of Note DATE: 06/18/18 TIME: 12:00 Assessment/Plan VTE Prophylaxis Risk score (from Nsg)>0 risk: 0 SCD applied (from Nsg): Yes Pharmacological prophylaxis: other Lines/Catheters IV Catheter Type (from Nrsg): Saline Lock Urinary Cath still in place: No Assessment/Plan Hospital Course S: Patient having some mild abdominal pain, relieved with Tylenol. No fevers overnight. Still waiting for ART CLASS MODEL team consult. O: VS - see below PE: General: Patient is currently lying in bed in no acute distress, HEENT: Atraumatic, normocephalic. The pupils are equal, round and reactive. Extraocular motor are intact Neck: Supple with full range of motion. No rigidity or meningismus Chest: Nontender Lungs: Clear to auscultation bilaterally no crackles rales or wheezing Heart: Normal S1-S2, Regular rhythm and rate. Abdomen: Soft , nontender, nondistended , bowel sounds are present, mild L flank tenderness. Extremities: Normal to inspection, no edema no cyanosis Genitourinary: Mild Left CVA tenderness to palpation Assessment/Plan: 32 yo woman, drug user presents with pyelonephritis. #1 sepsis: Secondary to urinary tract infection/pyelonephritis-slowly improving -For now continue ceftriaxone 1 g IV every 24 hours. Await culture [id number] results of this # 2 intrauterine : Septic ultrasound shows at approximately 8 weeks. Focal areas of subchorionic hemorrhage.also noted -Monitor for now, on admission OB was consulted by the ED, still awaiting further recommendations. # 3 illicit drugs: reports meth and MJ use. -Monitor for withdrawal, counseled on drug use cessation, follow-up recommendations from social media developer consult. # 4 dvt and gi proph: scds, no gi prophy indicated Result Diagram: 06/18/18 0533 06/18/18 0533 Results 24hrs Laboratory Tests Test 06/18/18 05:33 White Blood Count 5.5 Red Blood Count 3.94 L Hemoglobin 10.8 L Hematocrit 33.0 L Mean Corpuscular Volume 83.8 Mean Corpuscular Hemoglobin 27.4 L Mean Corpuscular Hemoglobin Concent 32.7 Red Cell Distribution Width 13.4 Platelet Count 354 # Mean Platelet Volume 9.0 Immature Granulocytes % 0.400 Neutrophils % 56.4 Lymphocytes % 27.7 Monocytes % 13.7 H Eosinophils % 1.6 Basophils % 0.2 Nucleated Red Blood Cells % 0.0 Immature Granulocytes # 0.020 Neutrophils # 3.1 Lymphocytes # 1.5 Monocytes # 0.8 Eosinophils # 0.1 Basophils # 0.0 Nucleated Red Blood Cells # 0.0 Sodium Level 140 Potassium Level 3.8 Chloride Level 106 Carbon Dioxide Level 23 Anion Gap 11 Blood Urea Nitrogen 6 L Creatinine 0.41 L Est Glomerular Filtrat Rate mL/min > 60 Glucose Level 98 Calcium Level 9.2 Total Bilirubin 0.1 L Direct Bilirubin 0.00 Indirect Bilirubin 0.1 Aspartate Amino Transf (AST/SGOT) 12 L Alanine Aminotransferase (ALT/SGPT) 19 Alkaline Phosphatase 71 Total Protein 6.6 Albumin 3.3 Globulin 3.30 H Albumin/Globulin Ratio 1.00 Exam/Review of Systems Exam Vitals Vital Signs Date Temp Pulse Resp B/P (MAP) Pulse Ox O2 O2 Flow FiO2 Time Delivery Rate 06/18/18 98.2 72 16 102/59 100 11:47 (73) 06/15/18 Room Air 01:38 Intake and Output 06/17/18 06/17/18 06/18/18 1515:00 23:00 07:00 IntakeIntake Total 850 ml 500 ml BalanceBalance 850 ml 500 ml Results Results 24hrs Laboratory Tests Test 06/18/18 05:33 White Blood Count 5.5 Red Blood Count 3.94 L Hemoglobin 10.8 L Hematocrit 33.0 L Mean Corpuscular Volume 83.8 Mean Corpuscular Hemoglobin 27.4 L Mean Corpuscular Hemoglobin Concent 32.7 Red Cell Distribution Width 13.4 Platelet Count 354 # Mean Platelet Volume 9.0 Immature Granulocytes % 0.400 Neutrophils % 56.4 Lymphocytes % 27.7 Monocytes % 13.7 H Eosinophils % 1.6 Basophils % 0.2 Nucleated Red Blood Cells % 0.0 Immature Granulocytes # 0.020 Neutrophils # 3.1 Lymphocytes # 1.5 Monocytes # 0.8 Eosinophils # 0.1 Basophils # 0.0 Nucleated Red Blood Cells # 0.0 Sodium Level 140 Potassium Level 3.8 Chloride Level 106 Carbon Dioxide Level 23 Anion Gap 11 Blood Urea Nitrogen 6 L Creatinine 0.41 L Est Glomerular Filtrat Rate mL/min > 60 Glucose Level 98 Calcium Level 9.2 Total Bilirubin 0.1 L Direct Bilirubin 0.00 Indirect Bilirubin 0.1 Aspartate Amino Transf (AST/SGOT) 12 L Alanine Aminotransferase (ALT/SGPT) 19 Alkaline Phosphatase 71 Total Protein 6.6 Albumin 3.3 Globulin 3.30 H Albumin/Globulin Ratio 1.00 Medications Medication Current Medications IV Flush (NS 3 ml) 3 ml PER PROTOCOL IV ; Start 06/15/18 at 01:00 Ondansetron HCl (Zofran Inj) 4 mg Q6H PRN IV NAUSEA/VOMITING; Start 06/15/18 at 01:00 Acetaminophen (Tylenol Tab) 650 mg Q6H PRN PO .PAIN 1-3 OR TEMP Last administered on 06/16/18at 18:52; Admin Dose 650 MG; Start 06/15/18 at 01:00 Docusate Sodium (Colace) 100 mg Q12H PRN PO .CONSTIPATION; Start 06/15/18 at 01:00 Bisacodyl (Dulcolax) 5 mg DAILY PRN PO .CONSTIPATION; Start 06/15/18 at 01:00 Ceftriaxone Sodium 50 ml @ 100 mls/hr Q24H IVPB Last administered on 06/18/18at 00:07; Admin Dose 100 MLS/HR; Start 06/16/18 at 00:00 RUBY BURNETT Jun 18, 2018 12:01
[2018-06-18] MEDS: ACETAMINOPHEN 325 MG TAB PO PRN (12:09)
--- NOTE | 2018-06-18 15:51 | QN ---
Documentation Comment Thank you for consulting with Account Liaison Hospice team 32 yo @ around 8 wks GA with viable No VB No OB symotms with pyelonephritis ,patient is improving PMH cholecystitis help c PSH cholecystectomy PE Vs stable Gen NAD --->At this time ,management as per Medicine team --->No OB intervention is needed at this point --->she needs to start her care Thanks BETTY HICKS M.D. Jun 18, 2018 15:51
[2018-06-19] VITALS (10 sets, daily range): BP systolic 91–117; BP diastolic 46–70; PULSE 74–96; RESP 16–18
--- NOTE | 2018-06-19 11:33 | PDOCDIS ---
Discharge Instructions CONDITION [id number] Patient Condition: [id number] Stable HOME CARE INSTRUCTIONS: [id number] Diet Instructions: [id number] Low Fat /Cholesterol ACTIVITY: Shysz2Dy Activity Restrictions: [id number] Slowly Increase Activity Rest between Activity Avoid heavy lifting FOLLOW UP/APPOINTMENTS Follow-up Plan Please take your medications as prescribed, see your doctor in the clinic in the next 1 week. RUBY BURNETT Jun 19, 2018 11:33
[2018-06-19] MEDS ORDERED: ACET500T98 PO (11:35)
[2018-06-19] MEDS ORDERED: PREN-47 PO (11:35)
[2018-06-19] MEDS ORDERED: NITR-58 PO (11:35)
[2018-06-19] MEDS: ACETAMINOPHEN 325 MG TAB PO PRN (11:36)
--- NOTE | 2018-06-19 11:39 | DS ---
Date/Time of Note Date/Time of Note DATE: 06/19/18 TIME: 11:36 Discharge Summary Admission/Discharge Info Admit Date/Time Jun 15, 2018 at 00:34 Discharge Date/Time #1 sepsis: Secondary to urinary tract infection/pyelonephritis-slowly improving -For now continue ceftriaxone 1 g IV every 24 hours. Await culture [id number] results of this # 2 intrauterine : Septic ultrasound shows at approximately 8 weeks. Focal areas of subchorionic hemorrhage.also noted -Monitor for now, on admission OB was consulted by the ED, still awaiting further recommendations. # 3 illicit drugs: reports meth and MJ use. -Monitor for withdrawal, counseled on drug use cessation, follow-up recommendations from manager social media consult. Patient Condition: Stable Hx of Present Illness 32-year-old female with a history of IV drug use in 8 weeks who presents today with chills and left-sided flank pain. Patient reports that yesterday she started experiencing chills as well as left-sided flank pain. She also reported nausea. Patient denies any cough or chest pain or shortness of breath. She knows that she is . And she does currently use marijuana and IV meth. She reports that she is hoping to quit. Hospital Course Patient was admitted and diagnosed with pyelonephritis. UA was positive. Khanh santana was placed on antibiotic treatment. She was also found on the ultrasound with Single live intrauterine with an estimated gestational age of 8 weeks and 5 days, based on ultrasound measurements, and focal areas of subchorionic hemorrhage. Patient was counseled on drug cessation as she was positive on her U tox for methamphetamine and bleed. Over the course of her hospital stay her urinary tract symptoms improved, she was monitor for signs of withdrawal. She was able to ambulate, tolerated p.o. diet. Vital signs and labs are stable on day of discharge. She was seen by RN TELEPHONIC team given the ultrasound findings and recommended conservative care for now. Patient will be discharged home today in improved condition. See below for full list of discharge medications. Home Meds Active Scripts [id number]-Khdvz Acid ([place] Chewable) 1 Each Tab.chew, 1 TAB PO DAILY for 30 Days, #30 TAB.CHEW 6 Refills Prov:RUBY BURNETT 06/19/18 Nitrofurantoin Monohyd Macrocr* (Macrobid*) 100 Mg Capsr, 100 MG PO BID for 3 Days, #6 CAP Prov:RUBY BURNETT S. 06/19/18 Acetaminophen (Tylenol) 500 Mg Tab, 500 MG PO Q6, #30 TAB Prov:RUBY BURNETT S. 06/19/18 Discontinued Reported Medications [zofran PO] No Conflict Check 12/14/12 Hydrocodone Bit-Acetaminophen* ([place]*) 1 Tab Tab, 2 TAB PO QID 12/14/12 Follow-up Plan Please take your medications as prescribed, see your doctor in the clinic in the next 1 week. Primary Care Provider Not On Staff Doctor Time spent on discharge: > 30 minutes RUBY BURNETT Jun 19, 2018 11:39
== END 2018-06-19 19:10 | disposition home or self-care (01) | DRG 831 ==
LOC: FTE 17:06 → TEL 06-15 00:34
PROVIDERS: ADMIT Family Medicine; ATTEND Hospitalist
DX: O98.811 Other maternal infectious and parasitic diseases complicating pregnancy, first trimester (principal); A41.9 Sepsis, unspecified organism; N10 Acute pyelonephritis; O99.321 Drug use complicating pregnancy, first trimester; F15.90 Other stimulant use, unspecified, uncomplicated; F12.90 Cannabis use, unspecified, uncomplicated; O99.331 Smoking (tobacco) complicating pregnancy, first trimester; F17.210 Nicotine dependence, cigarettes, uncomplicated; Z3A.08 8 weeks gestation of pregnancy; Z90.49 Acquired absence of other specified parts of digestive tract
CPT/HCPCS: 76775; 76801; 80053; 80061; 80307; 81001; 82150; 83036; 83605; 83690; 83735; 84443; 84702; 85025; 86900; 86901; 87040; 87086; 90686; 96374; J0696; J7030